=== PATIENT | male | born 1990 | race Caucasian/White ===

== ENCOUNTER 2022-05-08 17:17 | Emergency (ER) | payer MEDICAID ==
[~2022-05-08] VITALS: Ht 180.3 cm; Wt 109.1 kg
[2022-05-08 18:39] LABS: BASOPHILS # (AUTO) 0.1 X10'3 (0-0.2); BASOPHILS % (AUTO) 0.6 % (0-1); EOSINOPHILS # (AUTO) 0.1 X10'3 (0-0.9); EOSINOPHILS % (AUTO) 0.9 % (0-6); HEMOGLOBIN 15.7 g/dl (14.0-17.9); LYMPHOCYTES # (AUTO) 2.5 X10'3 (1.1-4.8); LYMPHOCYTES % (AUTO) 17.5 % (21-51); MEAN CORPUSCULAR HGB CONC 34.1 g/dL (33.0-36.5); MEAN PLATELET VOLUME 8.4 FL (7.4-10.4); MONOCYTES # (AUTO) 1.1 X10'3 (0-0.9); MONOCYTES % (AUTO) 8.1 % (2-12); NEUTROPHILS # (AUTO) 10.4 X10'3 (1.8-7.7); NEUTROPHILS % (AUTO) 72.9 % (42-75); PLATELET COUNT 319 X10'3 (140-440); RED BLOOD COUNT 5.23 X10'6 (4.70-6.10); RED CELL DISTRIBUTION WIDTH 13.7 % (11.5-14.5); WHITE BLOOD COUNT 14.2 X10'3 (4.5-11.0)
[2022-05-08 18:48] LABS: APTT 29 SECONDS (22-32)
[2022-05-08] MEDS ORDERED: morphine 4 MG/ML inj SYRINge IV ONE (19:15)
[2022-05-08] MEDS ORDERED: ondansetron/PF 4mg/2ml inj IV ONE (19:30)
[2022-05-08 20:54] VITALS: BP 146/94
[2022-05-08] MEDS ORDERED: MORP15TA PO (21:29)
== END 2022-05-08 20:56 | disposition home or self-care (01) ==
LOC: ER 17:18
DX: S82.852A Displaced trimalleolar fracture of left lower leg, initial encounter for closed fracture (principal); S93.05XA Dislocation of left ankle joint, initial encounter; W18.39XA Other fall on same level, initial encounter; Y93.89 Activity, other specified; Y92.89 Other specified places as the place of occurrence of the external cause; Y99.8 Other external cause status
CPT/HCPCS: 27762; 36415; 73600; 73610; 73630; 80320; 85025; 85610; 85730; 93005; 96374; 96375; 99285; J2270; J2405; A6449